=== PATIENT | female | born 1980 | race Caucasian/White ===

== ENCOUNTER 2018-11-14 06:54 | Emergency (ER) | payer SELFPAY ==
[~2018-11-14] VITALS: Ht 154.9 cm; Wt 70.1 kg
[2018-11-14 06:59] VITALS: BP 142/89; PULSE 88; RESP 16; Ht 154.9 cm; Wt 70.1 kg
[2018-11-14] MEDS ORDERED: ONDANSETRON (ODT) 4 MG TAB ODT STA (07:16)
[2018-11-14] MEDS ORDERED: HYDR-4011 PO (07:17)
[2018-11-14] MEDS ORDERED: NAPR-985 PO (07:17)
[2018-11-14] MEDS ORDERED: CYCL10TA7 PO (07:17)
[2018-11-14] MEDS ORDERED: HYDROCODONE/APAP (5/325) TAB PO ONE (07:30)
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
== END 2018-11-14 08:26 | disposition home or self-care (01) ==
LOC: FTE 06:54
DX: M54.2 Cervicalgia (principal); M79.605 Pain in left leg
CPT/HCPCS: 99283

== ENCOUNTER 2018-12-05 17:58 | Emergency (ER) | payer MEDICAID ==
[~2018-12-05] VITALS: Ht 160 cm; Wt 70.9 kg
[~2018-12-05 17:58] MED LIST: CYCL10TA7 PO; HYDR-4011 PO; NAPR-985 PO
[2018-12-05 18:19] VITALS: BP 128/73; PULSE 90; RESP 19; Ht 160 cm; Wt 70.9 kg
[2018-12-05] MEDS ORDERED: KETOROLAC 30 MG INJ IM STA (19:20)
[2018-12-05] MEDS ORDERED: PRED20TA PO (20:59)
[2018-12-05] MEDS ORDERED: TRAM50TA2 PO (20:59)
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
== END 2018-12-05 21:10 | disposition home or self-care (01) ==
LOC: FTE 17:58
DX: M25.512 Pain in left shoulder (principal); M54.12 Radiculopathy, cervical region
CPT/HCPCS: 72125; 81025; 96372; J1885; Z7502